=== PATIENT | male | born 1930 | race Caucasian/White ===

== ENCOUNTER 2018-10-04 10:19 | Observation (INO) ==
--- NOTE | 2018-10-04 11:05 | EKG Report ---
Test Performed on : 10/04/2018 10:59:38 AM Test Reason : admission orders Blood Pressure : / mmHG Vent. Rate : 063 BPM Atrial Rate : 063 BPM P-R Int : 332 ms QRS Dur : 174 ms QT Int : 502 ms P-R-T Axes : 000 -81 101 degrees QTc Int : 513 ms Atrial-sensed ventricular-paced rhythm with prolonged AV conduction with premature atrial complexes. 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 Confirmed by Douglas BAILEY, [place] ([id number]) on 10/05/2018 8:46:41 AM
[2018-10-04 12:07] LABS: AGAP 10; BUN 14 mg/dL (8-22); CALCIUM 8.7 mg/dL (8.8-10.2); CHLORIDE 106 mmol/L (98-107); COSMO 280; CREATININE 1.1 mg/dL (0.7-1.2); ESTIMATED GFR > 60; GLUCOSE 63 mg/dL (70-104); MAGNESIUM 2.2 mg/dL (1.5-2.7); SODIUM 141 mmol/L (136-145); TCO2 25 mmol/L (25-35)
[2018-10-04] MEDS: ELIQUIS PO SCH (20:07)
[2018-10-04] MEDS: DESYREL PO SCH (20:07)
[2018-10-04] MEDS: BETAPACE PO SCH (20:07)
--- NOTE | 2018-10-05 08:10 | EKG Report ---
Test Performed on : 10/05/2018 07:14:19 AM Test Reason : afib Blood Pressure : / mmHG Vent. Rate : 060 BPM Atrial Rate : 240 BPM P-R Int : 000 ms QRS Dur : 180 ms QT Int : 528 ms P-R-T Axes : 085 -84 104 degrees QTc Int : 528 ms Ventricular-paced rhythm Abnormal ECG When compared with ECG of 04-OCT-2018 10:59, (Unconfirmed) premature atrial complexes. are no longer present Vent. rate has decreased BY 3 BPM Confirmed by Douglas BAILEY, [place] ([id number]) on 10/05/2018 8:47:13 AM
[2018-10-05] MEDS: ELIQUIS PO SCH ×2 (08:34→21:02)
[2018-10-05] MEDS: BETAPACE PO SCH ×2 (08:35→21:02)
[2018-10-05] MEDS: MICARDIS PO SCH (08:38)
[2018-10-05] MEDS: NORVASC PO SCH (08:39)
[2018-10-05] MEDS: BUSPAR PO SCH ×2 (09:05→21:02)
[2018-10-05 09:47] LABS: BASO# 0.09 X1000 (0.0-0.2); BASO% 1.3 % (0.0-0.8); EOS# 0.36 X1000 (0.0-0.7); EOS% 5.2 % (0.0-10.0); HEMATOCRIT 48.2 % (42.0-52.0); HEMOGLOBIN 16.3 g/dL (14.0-18.0); LYMPH# 1.38 X1000 (1.2-3.4); LYMPH% 19.9 % (20.5-51.1); MCH 32.4 PG (27-31); MCHC 33.8 g/dL (33-37); MCV 95.8 FL (81-99); MONO# 0.61 X1000 (0.11-0.59); MONO% 8.8 % (1.7-9.3); MPV 10.8 FL (7.4-10.4); NEUT# 4.49 X1000 (1.4-6.5); NEUT% 64.8 % (42.2-75.2); PLT 177 X1000 (130-400); RBC 5.03 XMIL (4.7-6.1); RDW 13.4 % (11.5-14.5); WBC 6.93 X1000 (4.8-10.8)
[2018-10-05 09:51] LABS: INR 1.23; PROTIME 16.5 Seconds (11.0-16.0)
[2018-10-05 10:38] LABS: AGAP 9; BUN 11 mg/dL (8-22); CALCIUM 9.2 mg/dL (8.8-10.2); CHLORIDE 105 mmol/L (98-107); COSMO 281; ESTIMATED GFR > 60; GLUCOSE 107 mg/dL (70-104); MAGNESIUM 2.2 mg/dL (1.5-2.7); POTASSIUM 4.1 mmol/L (3.5-5.1); SODIUM 141 mmol/L (136-145); TCO2 27 mmol/L (25-35)
[2018-10-05] MEDS ORDERED: XYLOCAINE 4% TOPICAL SOLUTION ONE (11:50)
[2018-10-05] MEDS ORDERED: HURRICAINE SPRAY ONE (11:50)
[2018-10-05] MEDS ORDERED: XYLOCAINE 2% VISCOUS ONE (11:50)
[2018-10-05] MEDS ORDERED: DIPRIVAN 1% ONE ×2 (11:51→11:52)
[2018-10-05] MEDS ORDERED: XYLOCAINE-MPF 2% ONE (12:00)
[2018-10-05] MEDS ORDERED: NS 1,000 ML IV SCH (13:15)
--- NOTE | 2018-10-05 14:56 | EKG Report ---
Test Performed on : 10/05/2018 2:18:26 PM Test Reason : post DALIA/Cardioversion Blood Pressure : / mmHG Vent. Rate : 064 BPM Atrial Rate : 064 BPM P-R Int : 126 ms QRS Dur : 154 ms QT Int : 514 ms P-R-T Axes : -25 073 -73 degrees QTc Int : 530 ms Sinus rhythm. with occasional ventricular-paced complexes and premature atrial complexes. Right bundle branch block T wave abnormality, consider inferolateral ischemia Abnormal ECG When compared with ECG of 05-OCT-2018 07:14, premature atrial complexes. are now present Vent. rate has increased BY 4 BPM Confirmed by Douglas BAILEY, [place] ([id number]) on 10/08/2018 4:37:49 PM
[2018-10-05] MEDS: DESYREL PO SCH (21:02)
--- NOTE | 2018-10-05 21:47 | CARDIAC CATH REPORT ---
PROCEDURE NAME: - SUMMARY: Patient already under conscious sedation with propofol per Anesthesiology upon completion of transesophageal echocardiography, which demonstrated no evidence of left atrial appendage clot. There were no intracardiac thrombi. Demonstrated no evidence of intracardiac thrombus or left atrial appendage thrombus. The patient subsequently underwent synchronous direct current cardioversion with 50 joules biphasic converting atrial flutter to sinus rhythm with atrial sensed ventricular paced rhythm. The patient tolerated the procedure without apparent complications. CONCLUSIONS: Successful cardioversion of atrial flutter to sinus rhythm. cc: Theodore Koehler MD
--- NOTE | 2018-10-06 07:25 | EKG Report ---
Test Performed on : 10/06/2018 06:56:04 AM Test Reason : atrial flutter Blood Pressure : / mmHG Vent. Rate : 060 BPM Atrial Rate : 059 BPM P-R Int : 000 ms QRS Dur : 148 ms QT Int : 484 ms P-R-T Axes : 000 123 -48 degrees QTc Int : 484 ms Atrial-paced rhythm Right bundle branch block Left posterior fascicular block Bifascicular block Possible Inferior infarct , age undetermined T wave abnormality, consider lateral ischemia Abnormal ECG When compared with ECG of 05-OCT-2018 14:18, (Unconfirmed) Electronic atrial pacemaker has replaced Electronic ventricular pacemaker Confirmed by Douglas BAILEY, [place] ([id number]) on 10/08/2018 4:38:42 PM
[2018-10-06] MEDS: BUSPAR PO SCH (09:32)
[2018-10-06] MEDS: MICARDIS PO SCH (09:32)
[2018-10-06] MEDS: NORVASC PO SCH (09:32)
[2018-10-06] MEDS: ELIQUIS PO SCH (09:32)
[2018-10-06] MEDS: BETAPACE PO SCH (09:32)
[2018-10-06 11:56] VITALS: BP 143/93
--- NOTE | 2018-10-06 14:33 | PROGRESS NOTE ---
DATE: 10/06/2018 SUMMARY: The patient continues asymptomatic from a cardiovascular standpoint. He remains in sinus rhythm. OBJECTIVE: Blood pressure 143/93, heart rate 60, oxygen saturation 99% on room air.Chest: Clear to auscultation. Cardiac Exam: Reveals a regular rate and rhythm without appreciable murmur or gallop. There is no evidence of peripheral edema. PERTINENT DATA: Twelve lead EKG demonstrates atrial paced rhythm with right bundle branch block and left posterior fascicular block. T-wave abnormality demonstrated, consider lateral ischemia. IMPRESSION: 1. Atrial flutter. Patient continues in sinus rhythm post cardioversion on sotalol 80 mg p.o. b.i.d. No evidence of proarrhythmia. 2. Atherosclerotic coronary disease. Patient continues without angina. 3. Paroxysmal atrial fibrillation in the past. 4. Hypertension. 5. Hyperlipidemia. RECOMMENDATIONS: 1. Continue sotalol 80 mg p.o. b.i.d. 2. Continue anticoagulation with Eliquis. 3. Discharge the patient to home. 4. Followup in approximately 2 weeks. cc: Theodore Koehler MD
[2018-10-06] MEDS ORDERED: LIPITOR PO SCH (21:00)
== END 2018-10-06 14:09 | disposition home or self-care (01) ==
LOC: DIRADM → 3S 10:19
PROVIDERS: ADMIT Internal Medicine Cardiovascular Disease; ATTEND Internal Medicine Cardiovascular Disease
CPT/HCPCS: 80048; 82948; 83735; 85025; 85610; 92960; 93005; 93010; 93312; A9270; J7030; XXXXX